=== PATIENT | male | born 1960 | race Caucasian/White ===

== ENCOUNTER 2017-04-02 13:27 | Inpatient (IN) | payer BC ==
[~2017-04-02] VITALS: Ht 180.3 cm; Wt 104.9 kg
[2017-05-14] VITALS (11 sets, daily range): BP systolic 100–146; BP diastolic 64–85; PULSE 69–99; TEMP 97.8–98.9
[2017-05-14] MEDS ORDERED: COREG 6.256.25 MG/TA PO (05:55)
[2017-05-14] MEDS ORDERED: NORVASC 10MG10 MG PO (05:55)
[2017-05-14] MEDS ORDERED: HYZAAR 25 MG-101 TAB PO (05:56)
[2017-05-14] MEDS ORDERED: VITAMINC1000TA PO (05:57)
[2017-05-14] MEDS ORDERED: FOLIC ACID0.4 MG PO (05:57)
[2017-05-14] MEDS ORDERED: FERROUS SU325 MG/TAB PO (05:58)
[2017-05-15] VITALS (7 sets, daily range): BP systolic 93–129; BP diastolic 59–72; PULSE 85–108; TEMP 97.3–99.9
[2017-05-15 06:12] LABS: HEMATOCRIT 39.3 % (42.0-52.0); HEMOGLOBIN 13.3 g/dl (13.5-18.0)
[2017-05-16 04:51] VITALS: BP 110/56; PULSE 76; TEMP 98.6
[2017-05-16 06:44] LABS: HEMOGLOBIN 12.4 g/dl (13.5-18.0)
[2017-05-16 07:01] LABS: HEMATOCRIT 36.5 % (42.0-52.0)
[2017-05-16] MEDS ORDERED: ASPI325T6 PO (07:01)
[2017-05-16] MEDS ORDERED: NORCO 325 MG-7.1 TAB PO (07:02)
[2017-05-16] MEDS ORDERED: ROXICODONE 55 MG/TAB PO (07:03)
[2017-05-16] MEDS ORDERED: TYLENOL 500MG500 MG PO (07:04)
[2017-05-16] MEDS ORDERED: COLACE 100100 MG/CAP PO (07:04)
[2017-05-16 08:10] VITALS: BP 106/65; PULSE 92; TEMP 98.4
[2017-05-16 10:45] VITALS: BP 113/59; PULSE 83; TEMP 98.2
== END 2017-05-16 13:55 | disposition home or self-care (01) | DRG 470 ==
LOC: JCC 05-14 05:11
PROVIDERS: Orthopaedic Surgery
PROC: 0SRC0J9 Replacement of Right Knee Joint with Synthetic Substitute, Cemented, Open Approach (ICD-10-PCS; principal; 2017-05-14 07:30)
DX: M17.11 Unilateral primary osteoarthritis, right knee (principal); I10 Essential (primary) hypertension
CPT/HCPCS: A4314; A4315; A9284; C1713; C1776; J0690; J2250; J2704; J7120

== ENCOUNTER → 2017-04-26 | Outpatient (CLI) | payer BC | LOC: COL.LAB 17:00 | DX: Z01.812 Encounter for preprocedural laboratory examination (principal) ==